=== PATIENT | male | born 1970 | race Caucasian/White ===

== ENCOUNTER 2021-10-26 04:21 | Day surgery (SDC) | payer OTHER ==
[2021-10-24 12:53] VITALS: BMI 44.4
[2021-10-26] MEDS ORDERED: FENTANYL CITRATE/PF 50 MCG/ML VIAL ONE ×3 (13:09→14:07)
[2021-10-26] MEDS ORDERED: MIDAZOLAM HCL 2 MG/2 ML SINGLE DOSE VIAL ONE ×2 (13:09)
[2021-10-26] MEDS ORDERED: SUCCINYLCHOLINE CHLORIDE 200 MG/10 ML SYRINGE ONE (13:10)
[2021-10-26] MEDS ORDERED: PROPOFOL 20 ML ONE ×3 (13:10)
[2021-10-26] MEDS ORDERED: ceFAZolin SODIUM 1 GM VIAL IVPB ONE (13:29)
[2021-10-26] MEDS ORDERED: oxyCODONE HCL 5 MG TABLET PO PRN ×2 (13:56→13:59)
[2021-10-26] MEDS ORDERED: PROMETHAZINE HCL 25 MG/1 ML VIAL IVPB PRN (13:59)
[2021-10-26] MEDS ORDERED: ONDANSETRON 4 MG/2 ML VIAL IVPUSH PRN (13:59)
[2021-10-26] MEDS ORDERED: LACTATED RINGERS SOLUTION 1,000 ML IV SCH (14:00)
[2021-10-26] MEDS ORDERED: DEXTROSE 5%-0.45% SALINE 1,000 ML IV SCH (14:00)
[2021-10-26 16:00] VITALS: BP 140/88; PULSE 92; TEMP 98
== END 2021-10-26 16:01 | disposition home or self-care (01) ==
LOC: JASU-SURG 04:21
PROVIDERS: ATTEND Urology
PROC: 0T5B8ZZ Destruction of Bladder, Via Natural or Artificial Opening Endoscopic (ICD-10-PCS; principal; 2021-10-26 13:00)
DX: D41.4 Neoplasm of uncertain behavior of bladder (principal); C67.8 Malignant neoplasm of overlapping sites of bladder
CPT/HCPCS: 82962; 86850; 86900; 86901; 88307-TC; 94760

== ENCOUNTER 2021-11-16 04:06 | Day surgery (SDC) | payer OTHER ==
[2021-11-14 16:41] VITALS: BMI 45.6
[2021-11-16] MEDS ORDERED: PROPOFOL 20 ML ONE ×3 (07:34→07:57)
[2021-11-16] MEDS ORDERED: MIDAZOLAM HCL 2 MG/2 ML SINGLE DOSE VIAL ONE (07:35)
[2021-11-16] MEDS ORDERED: SUCCINYLCHOLINE CHLORIDE 200 MG/10 ML SYRINGE ONE (07:35)
[2021-11-16] MEDS ORDERED: ceFAZolin SODIUM 1 GM VIAL IVPB ONE (07:40)
[2021-11-16] MEDS ORDERED: ceFAZolin SODIUM 1 GM VIAL ONE (07:44)
[2021-11-16] MEDS ORDERED: DEXAMETHASONE SOD PHOSPHATE 4 MG/1 ML VIAL ONE (07:50)
[2021-11-16] MEDS ORDERED: oxyCODONE HCL 5 MG TABLET PO PRN (07:59)
[2021-11-16] MEDS ORDERED: DEXTROSE 5%-0.45% SALINE 1,000 ML IV SCH (08:00)
[2021-11-16] MEDS ORDERED: ONDANSETRON 4 MG/2 ML VIAL IVPUSH PRN (08:08)
[2021-11-16] MEDS ORDERED: FUROSEMIDE 40 MG/4 ML INJECTABLE VIAL ONE (08:15)
[2021-11-16] MEDS ORDERED: FENTANYL CITRATE/PF 50 MCG/ML VIAL ONE (08:15)
[2021-11-16] MEDS ORDERED: LACTATED RINGERS SOLUTION 1,000 ML IV SCH (08:15)
[2021-11-16 10:02] VITALS: BP 154/98; PULSE 77; TEMP 98.7
== END 2021-11-16 10:05 | disposition home or self-care (01) ==
LOC: JASU-SURG 04:06
PROVIDERS: ATTEND Urology
PROC: 0T5B8ZZ Destruction of Bladder, Via Natural or Artificial Opening Endoscopic (ICD-10-PCS; principal; 2021-11-16 07:30)
DX: N30.80 Other cystitis without hematuria (principal); I10 Essential (primary) hypertension; E11.9 Type 2 diabetes mellitus without complications
CPT/HCPCS: 88305-TC; 94760

== ENCOUNTER 2023-07-13 17:41 | Emergency (ER) | payer OTHER ==
[2023-07-13 17:49] VITALS: BP 144/79; PULSE 84; RESP 18; TEMP 98.3; BMI 28.0
[2023-07-13 20:08] LABS: BASO % 0.3 % (0-2.0); EOS % 0.7 % (0-4.5); HEMATOCRIT 41.8 % (35.4-49); HEMOGLOBIN 14.3 GM/dL (11.7-16.9); LYMPH % 15.2 % (8-40); MCH 31.5 pg (25.7-33.7); MCHC 34.2 g/dl (32.0-35.9); MEAN CELL VOLUME 91.9 fl (80-96); MEAN PLT VOLUME 8.3 fl (7.5-11.1); NEUT % 75.8 % (42.8-82.8); PLATELET COUNT 233 10^3/uL (134-434); RBC 4.54 M/mm3 (4.00-5.60); RDW 14.1 % (11.9-15.9); WHITE BLOOD COUNT 10.7 K/mm3 (4.0-10.0)
[2023-07-13 20:18] LABS: URINE APPEARANCE CLEAR; URINE BILIRUBIN NEGATIVE (NEGATIVE); URINE COLOR DK YELLOW; URINE GLUCOSE (UA) NEGATIVE (NEGATIVE); URINE KETONE TRACE (NEGATIVE); URINE LEUK ESTERASE NEGATIVE (NEGATIVE); URINE NITRITE NEGATIVE (NEGATIVE); URINE PROTEIN NEGATIVE (NEGATIVE)
[2023-07-13 20:48] LABS: POTASSIUM 4.2 mmol/L (3.5-5.1)
[2023-07-13 20:53] LABS: ALBUMIN 4.1 g/dl (3.4-5.0); BLOOD UREA NITROGEN 18.2 mg/dL (7-18); CALCIUM 9.2 mg/dL (8.5-10.1)
[2023-07-13 20:58] LABS: BILIRUBIN,TOTAL 0.6 mg/dL (0.2-1); TOT PROT 6.9 g/dl (6.4-8.2)
== END 2023-07-13 23:27 | disposition home or self-care (01) ==
LOC: JER 17:41
DX: M25.551 Pain in right hip (principal)
CPT/HCPCS: 36415; 73521-TC-FY; 73700-TC-RT; 80053; 81003; 85025; 87086; 99285-25